=== PATIENT | female | born 1985 | race American Indian/Alaskan Native ===

== ENCOUNTER 2019-07-02 12:04 | Inpatient (IN) | payer OTHER ==
[2019-07-02] MEDS ORDERED: TERBUTALINE 1 MG/1 ML INJ IVP PRN (14:04)
[2019-07-02] MEDS ORDERED: LIDOCAINE (2%) 20 MG/1 ML VIAL 20 ML MDV INFILTRATI ONE ×2 (14:04→16:26)
[2019-07-02] MEDS ORDERED: ONDANSETRON 4 MG/2 ML INJ IV PRN (14:04)
[2019-07-02] MEDS ORDERED: fentaNYL 100 MCG/2 ML INJ IV PRN (14:04)
[2019-07-02] MEDS ORDERED: ePHEDrine SULFATE 50 MG/1 ML INJ IV PRN (14:04)
[2019-07-02] MEDS ORDERED: TERBUTALINE 1 MG/1 ML INJ SUB-Q PRN (14:04)
[2019-07-02] MEDS ORDERED: MINERAL OIL 30 ML ORAL LIQD PO PRN (14:04)
[2019-07-02] MEDS ORDERED: BUTORPHANOL 2 MG/1 ML INJ IV PRN (14:04)
[2019-07-02] MEDS ORDERED: OXYTOCIN 20 UNIT/1000ML DRIP 40,000 MILLIUNITS/2,000 ML BAG IV ONE (14:05)
[2019-07-02] MEDS ORDERED: LACTATED RINGERS 1,000 ML ONE (14:05)
--- NOTE | 2019-07-02 14:30 | History and Physical Report ---
History of Present Illness Date of examination: 07/02/19 Date of admission: 07/02/2019 Chief complaint: Painful ctxs History of present illness: 33 yo, @ 41.4 wks gestation, whom initiated care with [facility] at 28.6 wks gestation by U/S. Her care has been complicated by GDM (diet controlled, declined co-management by [facility] specialist), anemia and late entry to care. She presents to [facility] with reports of painful ctxs for the past couple of hours and "not sure if I'm leaking or not". She reports positive FM, denies any VB. Labs: B+, antibody negative; Rubella immune; RPR non-reactive; HBsAg negative; HIV negative; Hgb 10.1; Plts 200; 1 hr gtt - 179; 3 hr Gtt: 74,199,165,162; PAP normal, HR HPV positive; GC/Chlamydia negative; GBS negative Past History Past Medical History: no pertinent history Past Surgical History: no surgical history [employer] History: other (HR HPV) Family/Genetic History: none Social history: , lives with family, full code. denies: smoking, alcohol abuse, prescription drug abuse, IV drug use - Obstetrical History Expected Date of Delivery: 06/21/19 Actual Gestation: 41 Week(s) 4 Day(s) : 2 Para: 1 Hx # Term Pregnancies: 1 Number of Pregnancies: 0 Spontaneous Abortions: 0 Induced : 0 Number of Living Children: 1 #1 Gender: Female year: 2[age][birth year] Birthweight: 2.722 kg Method of Delivery: Vaginal Gestational age at delivery: 40 Complications: none Medications and Allergies Allergies Allergy/AdvReac Type Severity Reaction Status Date / Time No Known Allergies Allergy Unverified 07/02/19 15:05 Active Meds: Active Medications Butorphanol Tartrate (Stadol) 2 mg IV Q2H PRN PRN Reason: Pain , Severe (7-10) Ephedrine Sulfate (Ephedrine Sulfate) 10 mg IV Q2M PRN PRN Reason: Hypotension Fentanyl (Sublimaze) 100 mcg IV Q2H PRN PRN Reason: Labor Pain Oxytocin/Sodium Chloride (Pitocin/Ns 20 Unit/1000ml Drip) 20 units in 1,000 mls @ 125 mls/hr IV DIRECT KIRSTY Lactated Ringer's (Lactated Ringers) 1,000 mls @ 125 mls/hr IV DIRECT KIRSTY Lidocaine (Xylocaine 2%) 20 ml INFILTRATI ONCE ONE Stop: 07/02/19 14:05 Mineral Oil (Mineral Oil) 30 ml PO QHS PRN PRN Reason: Constipation Ondansetron HCl (Zofran) 4 mg IV Q8H PRN PRN Reason: Nausea And Vomiting Terbutaline Sulfate (Brethine) 0.25 mg SUB-Q ONCE PRN PRN Reason: Hyperstimulation/Hypertonicity Terbutaline Sulfate (Brethine) 0.25 mg IVP ONCE PRN PRN Reason: Hyperstimulation/Hypertonicity Review of Systems All systems: negative Genitourinary: contractions - Vital Signs Vital signs: Vital Signs Temp Pulse BP 98.3 F 82 104/66 07/02/19 13:41 07/02/19 13:41 07/02/19 13:41 Temp Pulse Resp BP Pulse Ox 98.3 F 86 115/66 07/02/19 13:41 07/02/19 14:12 07/02/19 14:12 - Physical Exam Breasts: Positive: normal Cardiovascular: Regular rate Lungs: Positive: Normal air movement Abdomen: Positive: other (gravid) Genitourinary (Female): Positive: normal external genitalia, normal perenium Uterus: Positive: enlarged (S=D) Anus/Rectum: Positive: normal perianal skin Extremities: Positive: normal Deep Tendon Reflex Grade: Normal +2 - Obstetrical FHR: category 1 Uterine Contraction Monitor Mode: External Cervical Dilatation: 4 Cervical Effacement Percentage: 70 station: -1 Uterine Contraction Frequency (min): 3-4 Uterine Contraction Pattern: Regular Uterine Tone Measurement Phase: Resting Uterine Contraction Intensity: Moderate Results Result Diagrams: 07/02/19 Unknown All other labs normal. Assessment and Plan - Patient Problems (1) Post-dates Current Visit: Yes Status: Acute Plan to address problem: Admit to L & D Expectant management Pitocin augmentation if ctxs space out Pain medications as desired Anticipate (2) Anemia Current Visit: Yes Status: Acute Qualifiers: Anemia type: iron deficiency Plan to address problem: Resume oral iron supplementation PP (3) Gestational diabetes Current Visit: Yes Status: Acute Qualifiers: Gestational diabetes mellitus control: diet-controlled Trimester: third trimester Qualified Code(s): O24.410 - Gestational diabetes mellitus in , diet controlled Plan to address problem: Monitor blood glucose levels q 6hr intrapartum
[2019-07-02] MEDS ORDERED: LACTATED RINGERS 1,000 ML IV SCH (15:00)
[2019-07-02] MEDS ORDERED: OXYTOCIN 20 UNIT/1000ML DRIP 20 UNITS/1,000 ML BAG IV SCH (15:00)
[2019-07-02 15:58] LABS: Hematocrit 40.1 % (30.3-42.9); Hemoglobin 13.5 gm/dl (10.1-14.3); Mean Corpuscular HGB Conc 34 % (30-34); Mean Corpuscular Volume 87 fl (79-97); Platelet Count 179 K/mm3 (140-440); Red Blood Count 4.63 M/mm3 (3.65-5.03); Red Cell Distribution Width 15.6 % (13.2-15.2)
[2019-07-02] MEDS ORDERED: diphenhydrAMINE 25 MG CAP PO PRN (16:59)
[2019-07-02] MEDS ORDERED: LANOLIN/ZINC/DIMETHICONE (LANSINOH) 7 GM TP PRN (16:59)
[2019-07-02] MEDS ORDERED: WITCH HAZEL/ GLYCERIN PAD TP PRN (16:59)
[2019-07-02] MEDS ORDERED: MAGNESIUM HYDROXIDE (MOM) ORAL LIQD UDC PO PRN (16:59)
[2019-07-02] MEDS ORDERED: PROMETHAZINE 25 MG RECT SUPP PR PRN (16:59)
[2019-07-02] MEDS ORDERED: oxyCODONE /ACETAMINOPHEN 5-325MG TAB PO PRN (16:59)
[2019-07-02] MEDS ORDERED: PROMETHAZINE 25 MG TAB PO PRN (16:59)
--- NOTE | 2019-07-02 17:10 | Procedure Note ---
OB Delivery Note - Delivery Date of Delivery: 07/02/19 (1618) Surgeon: FREEDOM HOBSON (CNM) Estimated blood loss: other (400cc) - Vaginal Delivery presentation: vertex Delivery position: OA (ALDO) Intrapartum events: meconium (thick) Delivery induction: none Delivery monitor: external FHT, external uterine Route of delivery: Delivery placenta: spontaneous (1621, heavy meconium staining) Delivery cord: nuchal cord (tight x 1) Episiotomy: none Delivery laceration: 2nd degree Delivery repair: vicryl (3.0 CT-1) Anesthesia: local Delivery comments: NICU team in room for delivery. of viable male infant with heavy meconium staining and tight nuchal cord x 1, delivered through via summersault maneuver. Placed on maternal abdomen, bulb suctioned by NICU nurse followed by spontaneous cry. Cord double clamped and cut by FOB after 1 min and handed over to NICU for further evaluation at baby warmer. Placenta spontaneously delivered, hernández, disposed per hospital policy. Fundus firm @ U-1. 2nd degree perineal laceration, repaired with 3.[address]-1. Hemastasis maintained. Mother and baby safe and stable. - A at 1 minute: 7 at 5 minutes: 9 Gender: Male (Weight: 3658 gms (8 lbs 1 ozs) 20 inches)
[2019-07-02] MEDS: DOCUSATE SODIUM 100 MG CAP PO SCH (21:45)
[2019-07-02] MEDS: FERROUS SULFATE 325 MG TAB PO SCH (21:45)
[2019-07-03] MEDS: IBUPROFEN 600 MG TAB PO SCH ×5 (00:02→17:27)
[2019-07-03 09:10] LABS: Hematocrit 27.6 % (30.3-42.9); Hemoglobin 9.4 gm/dl (10.1-14.3)
[2019-07-03] MEDS: DOCUSATE SODIUM 100 MG CAP PO SCH ×2 (10:43→21:41)
[2019-07-03] MEDS: FERROUS SULFATE 325 MG TAB PO SCH ×2 (10:43→21:41)
[2019-07-03] MEDS: PRENATAL VIT27-FE FUMARATE-FOLIC ACID VIT TAB PO SCH (10:43)
[2019-07-03] MEDS ORDERED: IRON DEXTRAN COMPLEX 100 MG/2 ML INJ IM SCH (12:00)
--- NOTE | 2019-07-03 13:50 | Progress Note ---
Assessment and Plan A: PP Day #1 Asymptomatic Anemia P: Follow Routine Orders Infed 100mg IM x 1 dose FeSO4 325mg PO TID D/C home today per patient request RTO in 6 weeks Subjective - Subjective Date of service: 07/03/19 Patient reports: appetite normal, voiding normally, pain well controlled, flatus, ambulating normally : doing well, bottle feeding Objective - Vital Signs Latest vital signs: Vital Signs Temp Pulse Resp BP BP Pulse Ox 07/03/19 08:45 98 F 87 18 96/57 07/03/19 06:24 18 07/03/19 00:02 20 07/03/19 00:00 98.6 F 71 18 104/72 07/02/19 19:30 98.7 F 75 16 100/56 07/02/19 18:09 98.9 F 63 20 109/53 100 07/02/19 17:38 83 100/61 07/02/19 17:23 80 104/59 07/02/19 17:08 99.1 F 77 106/55 07/02/19 16:41 85 107/58 07/02/19 16:15 125 H 167/110 07/02/19 16:11 84 115/63 07/02/19 15:41 78 119/63 07/02/19 15:11 90 117/65 07/02/19 14:41 85 120/68 07/02/19 14:12 86 115/66 Intake and Output 07/02/19 07/03/19 07/03/19 22:59 06:59 14:59 Intake Total 300 600 320 Balance 300 600 320 Intake: Oral 320 Intake, Free Water 300 600 Other: Total, Intake Amount 320 # Voids Void 1 Estimated Blood Loss 400 - Exam Breasts: Present: normal Cardiovascular: Present: Regular rate Lungs: Present: Clear to auscultation, Normal air movement Abdomen: Present: normal appearance, soft, normal bowel sounds Uterus: Present: normal, firm, fundal height below umbilicus Extremities: Present: normal - Labs Labs: Abnormal lab results 07/02/19 07/03/19 Range/Units Unknown 08:48 Hgb 9.4 L D (10.1-14.3) gm/dl Hct 27.6 L D (30.3-42.9) % RDW 15.6 H (13.2-15.2) %
--- NOTE | 2019-07-03 13:52 | Discharge Summary ---
Providers - Providers Date of Admission: 07/02/19 16:18 Date of discharge: 07/03/19 Attending physician: JEMAL RAMIREZ Primary care physician: JEMAL RAMIREZ Hospitalization Reason for admission: active labor Delivery: Episiotomy: none Laceration: none Other procedures: none complications: none Discharge diagnosis: IUP at term delivered baby: male Condition at discharge: Good Disposition: DC-01 TO HOME OR SELFCARE Plan - Provider Discharge Summary Activity: routine, no sex for 6 weeks, no heavy lifting 4 weeks, no strenuous exercise Diet: routine Instructions: routine Additional instructions: [] Smoking cessation referral if applicable(refer to patient education folder for contact #) [] Refer to [facility] Booklet Call your doctor immediately for: * Fever > 100.5 * Heavy vaginal bleeding ( >1 pad per hour) * Severe persistent headache * Shortness of breath * Reddened, hot, painful area to leg or breast * Drainage or odor from incision. * Keep incision clean and dry at all times and follow doctor's instructions regarding bathing/showering - Follow up plan Follow up: JEMAL RAMIREZ MD [Primary Care Provider] - 6 Weeks
[2019-07-04] MEDS: IBUPROFEN 600 MG TAB PO SCH ×4 (00:10→17:00)
[2019-07-04] MEDS: PRENATAL VIT27-FE FUMARATE-FOLIC ACID VIT TAB PO SCH (10:32)
[2019-07-04] MEDS: FERROUS SULFATE 325 MG TAB PO SCH (10:32)
[2019-07-04] MEDS: DOCUSATE SODIUM 100 MG CAP PO SCH (10:33)
[2019-07-04 17:01] VITALS: BP 98/62
== END 2019-07-04 18:00 | disposition home or self-care (01) | DRG 807 ==
LOC: LD 12:04 → TRG 12:04 → LD 16:18 → TRG 16:34 → OB 18:22
PROVIDERS: ADMIT Obstetrics & Gynecology; ATTEND Obstetrics & Gynecology
PROC: 10E0XZZ Delivery of Products of Conception, External Approach (ICD-10-PCS; principal; 2019-07-02)
PROC: 0KQM0ZZ Repair Perineum Muscle, Open Approach (ICD-10-PCS; 2019-07-02)
DX: O77.0 Labor and delivery complicated by meconium in amniotic fluid (principal); Z37.0 Single live birth; O99.02 Anemia complicating childbirth; O69.81X0 Labor and delivery complicated by cord around neck, without compression, not applicable or unspecified; O48.0 Post-term pregnancy; O24.429 Gestational diabetes mellitus in childbirth, unspecified control; O70.1 Second degree perineal laceration during delivery; Z3A.41 41 weeks gestation of pregnancy
CPT/HCPCS: 36415; 85014; 85018; 85027; 86850; 86900; 86901; G0378; A6250; J1750; J2590; J3010; J7120